=== PATIENT | female | born 1965 ===

== ENCOUNTER 2017-10-05 10:42 | Outpatient (CLI) | payer OTHER | END 2017-10-05 10:43 | disposition home or self-care (01) | LOC: RX STUDY 10:42 | DX: R13.19 Other dysphagia (principal) ==

== ENCOUNTER 2017-11-17 12:12 | Outpatient (CLI) | payer OTHER | END 2017-11-17 12:15 | disposition home or self-care (01) | LOC: SONOGRAMA 12:12 | DX: E04.1 Nontoxic single thyroid nodule (principal) ==

== ENCOUNTER 2018-05-31 13:17 | Outpatient (CLI) | payer OTHER | END 2018-05-31 13:40 | disposition home or self-care (01) | LOC: LAB 13:17 | DX: M06.1 Adult-onset Still's disease (principal); N39.0 Urinary tract infection, site not specified; I11.0 Hypertensive heart disease with heart failure; Z12.11 Encounter for screening for malignant neoplasm of colon; D13.9 Benign neoplasm of ill-defined sites within the digestive system; I10 Essential (primary) hypertension ==